=== PATIENT | female | born 1950 | race Caucasian/White ===

== ENCOUNTER → 2016-06-01 | Outpatient (CLI) | payer OTHER ==
--- NOTE | 2016-06-02 07:00 | DIAGNOSTIC IMAGING REPORT ---
RIGHT HIP UNILATERAL 2 VIEWS CLINICAL HISTORY: Right hip pain. No known trauma. COMPARISON: Pelvis and hip radiograph October 18, 2011. FINDINGS: Alignment of the right hip is anatomic. There is no fracture or suspicious lesion. Joint space is preserved. There is minimal osteophytosis of the right hip. IMPRESSION: 1. No acute fracture or dislocation of the right hip. 2. Minimal osteoarthritis of the right hip. Electronically signed by: Wilson Tipton M.D. 06/02/2016 6:59 AM Dictated Date/Time: 06/02/2016 6:58 AM
--- NOTE | 2016-06-02 07:01 | DIAGNOSTIC IMAGING REPORT ---
L-SPINE MIN 4 VIEWS ROUTINE CLINICAL HISTORY: Lumbar pain. COMPARISON: None FINDINGS: There are cholecystectomy clips. Pelvic calcifications likely reflect phleboliths. Alignment of the lumbar spine is anatomic. No fracture or suspicious lesion is present. There is mild multilevel disc space narrowing and osteophytosis with mild multilevel facet arthrosis. IMPRESSION: 1. No acute lumbar spine fracture or subluxation. 2. Mild multilevel degenerative disc disease and facet arthrosis. Electronically signed by: Wilson Tipton M.D. 06/02/2016 7:00 AM Dictated Date/Time: 06/02/2016 6:59 AM
== END | disposition home or self-care (01) ==
LOC: C.RAD 22:52
PROVIDERS: ATTEND Emergency Medicine
DX: M25.551 Pain in right hip (principal)

== ENCOUNTER → 2016-06-10 | Outpatient (CLI) | payer OTHER ==
[2016-06-10 19:06] LABS: MEAN CELL VOLUME 89.3 fL (80-100); MEAN CORPUSCULAR HEMOGLOBIN 29.2 pg (25-34); MEAN CORPUSCULAR HGB CONC 32.8 g/dl (32-36); MEAN PLATELET VOLUME 9.4 fL (7.4-10.4); PLATELET COUNT 239 K/uL (130-400); RED BLOOD COUNT 4.48 M/uL (4.2-5.4); WHITE BLOOD COUNT 7.44 K/uL (4.8-10.8)
[2016-06-10 19:28] LABS: ALT/SGPT 24 U/L (12-78); AST/SGOT 15 U/L (15-37); BLOOD UREA NITROGEN 17 mg/dl (7-18); BUN/CREATININE RATIO 22.8 (10-20); CALCIUM 8.9 mg/dl (8.5-10.1); CARBON DIOXIDE 30 mmol/L (21-32); CHLORIDE 108 mmol/L (98-107); CREATININE 0.76 mg/dl (0.60-1.20); GLUCOSE 108 mg/dl (70-99); POTASSIUM 4.3 mmol/L (3.5-5.1); SODIUM 142 mmol/L (136-145)
[2016-06-10 19:39] LABS: ALKALINE PHOSPHATASE 84 U/L (45-117); CHOLESTEROL 284 mg/dl (0-200); CHOLESTEROL/HDL RATIO 4.8; HDL CHOLESTEROL 59 mg/dl; LDL CHOLESTEROL CALCULATED 174 mg/dl; TRIGLYCERIDES 254 mg/dl (0-150); VERY LOW DENSITY LIPOPROT CALC 51 mg/dl
== END | disposition home or self-care (01) ==
LOC: C.LAB 18:37
PROVIDERS: ATTEND Specialist
DX: E11.65 Type 2 diabetes mellitus with hyperglycemia (principal); E78.5 Hyperlipidemia, unspecified; E55.9 Vitamin D deficiency, unspecified; E03.9 Hypothyroidism, unspecified

== ENCOUNTER → 2016-10-13 | Outpatient (CLI) | payer OTHER ==
[2016-10-13 12:40] LABS: ESTIMATED AVERAGE GLUCOSE 137 mg/dl; HA1C FLAG Normal (Normal)
[2016-10-13 12:43] LABS: ALT/SGPT 19 U/L (12-78); AST/SGOT 10 U/L (15-37); BLOOD UREA NITROGEN 18 mg/dl (7-18); BUN/CREATININE RATIO 21.4 (10-20); CALCIUM 8.9 mg/dl (8.5-10.1); CARBON DIOXIDE 30 mmol/L (21-32); CHLORIDE 105 mmol/L (98-107); CHOLESTEROL 250 mg/dl (0-200); CREATININE 0.83 mg/dl (0.60-1.20); GLUCOSE 109 mg/dl (70-99); POTASSIUM 4.1 mmol/L (3.5-5.1); SODIUM 139 mmol/L (136-145)
[2016-10-13 12:45] LABS: ALB/GLOB RATIO 0.8 (0.9-2); ALKALINE PHOSPHATASE 73 U/L (45-117); CHOLESTEROL/HDL RATIO 4.2; HDL CHOLESTEROL 59 mg/dl; LDL CHOLESTEROL CALCULATED 140 mg/dl; TRIGLYCERIDES 255 mg/dl (0-150); VERY LOW DENSITY LIPOPROT CALC 51 mg/dl
== END | disposition home or self-care (01) ==
LOC: C.LAB 10:42
PROVIDERS: ATTEND Physician Assistant
DX: E11.65 Type 2 diabetes mellitus with hyperglycemia (principal); E78.5 Hyperlipidemia, unspecified; E55.9 Vitamin D deficiency, unspecified

== ENCOUNTER → 2017-01-27 | Outpatient (CLI) | payer OTHER ==
[~2017-01-27] MED LIST: COEN100C11 PO; ERGO500037 PO; MULT-506 PO; OMEG10007 PO; PRT/20 PO
--- NOTE | 2017-01-27 15:32 | MAMMOGRAPHY REPORT ---
BILATERAL DIGITAL SCREENING MAMMOGRAM WITH CAD: 01/27/2017 CLINICAL HISTORY: Routine screening. Patient has no complaints. TECHNIQUE: Current study was also evaluated with a Computer Aided Detection (CAD) system. Bilateral CC and MLO views were obtained. COMPARISON: Comparison is made to exams dated: 03/05/2013 mammogram, 12/16/2011 mammogram - [facility], and 05/24/2006 mammogram - [facility]. BREAST COMPOSITION: There are scattered areas of fibroglandular density in both breasts. FINDINGS: No suspicious masses, calcifications, or areas of architectural distortion are noted in ei ther breast. There has been no significant interval change compared to prior exams. IMPRESSION: ACR BI-RADS CATEGORY 1: NEGATIVE There is no mammographic evidence of malignancy. A 1 year screening mammogram is recommended. The pa tient will receive written notification of the results. Approximately 10% of breast cancers are not detected with mammography. A negative mammographic report should not delay biopsy if a clinically suggestive mass is present. Kay Gibson M.D. ah/:01/27/2017 14:38:14 Network Management Specialist: Bebe Figueroa RT(R)(M)(BD), [facility] letter sent: Normal 1/2 BI-RADS Code: ACR BI-RADS Category 1: Negative
== END | disposition home or self-care (01) ==
LOC: C.MAMM 11:27
PROVIDERS: ATTEND General Practice
DX: Z12.31 Encounter for screening mammogram for malignant neoplasm of breast (principal)

== ENCOUNTER 2017-02-07 15:44 | Emergency (ER) | payer OTHER ==
[2017-02-07 15:46] VITALS: TEMP 36.9; Ht 157.5 cm
[2017-02-07 16:31] LABS: BASO % 0.3 %; BASO ABS # 0.02 K/uL (0-0.2); EOS % 3.8 %; EOS ABS # 0.23 K/uL (0-0.5); HEMATOCRIT 39.5 % (37-47); IG# 0.02 K/uL (0.00-0.02); LYMPH ABS # 2.27 K/uL (1.2-3.4); MEAN CELL VOLUME 89.8 fL (80-100); MEAN CORPUSCULAR HEMOGLOBIN 29.5 pg (25-34); MEAN CORPUSCULAR HGB CONC 32.9 g/dl (32-36); MEAN PLATELET VOLUME 9.5 fL (7.4-10.4); MONO ABS # 0.61 K/uL (0.11-0.59); NEUT % 48.6 %; NEUT ABS # 2.98 K/uL (1.4-6.5); PLATELET COUNT 204 K/uL (130-400); RED CELL DISTRIBUTION WIDTH CV 13.5 % (11.5-14.5); RED CELL DISTRIBUTION WIDTH SD 44.5 fL (36.4-46.3); WHITE BLOOD COUNT 6.13 K/uL (4.8-10.8)
--- NOTE | 2017-02-07 16:31 | DIAGNOSTIC IMAGING REPORT ---
ADDENDUM Findings should read, in the second sentence, the proximal calf is remarkable for a short segment of thrombosis of the greater saphenous vein. Electronically signed by: Abram Sullivan M.D. 02/07/2017 4:43 PM Dictated Date/Time: 02/07/2017 4:40 PM ORIGINAL REPORT L VENOUS DOPP LOWER EXT UNILAT CLINICAL HISTORY: left lower leg pain and swelling/erythema pain. Edema. TECHNIQUE: Venous Doppler COMPARISON STUDY: None FINDINGS: All major deep venous structures are patent. Proximal calf is remarkable for trauma sustained a component of the greater saphenous vein. IMPRESSION: 1. No evidence of deep venous thrombosis. 2. Focal superficial thrombophlebitis proximal calf. The above report was generated using voice recognition software. It may contain grammatical, syntax or spelling errors. Electronically signed by: Abram Sullivan M.D. 02/07/2017 4:29 PM Dictated Date/Time: 02/07/2017 4:28 PM
[2017-02-07 16:50] LABS: BLOOD UREA NITROGEN 21 mg/dl (7-18); CALCIUM 8.4 mg/dl (8.5-10.1); CARBON DIOXIDE 30 mmol/L (21-32); CREATININE 0.81 mg/dl (0.60-1.20); GLUCOSE 100 mg/dl (70-99); SODIUM 139 mmol/L (136-145)
--- NOTE | 2017-02-07 16:51 | EMERGENCY ROOM VISIT NOTE ---
History First contact with patient: 15:48 Chief Complaint: LEG PAIN,LEG INJURY Stated Complaint: HYPERTENSION History of Present Illness The patient is a 66 year old female who presents to the Emergency Room with complaints of left lower leg pain which started 3 days ago. The patient also states that it is red and hot to the touch. The patient denies any recent open wounds to the leg. The patient denies any fever. The patient denies any prior blood clots. She is not on any blood thinners. The patient denies any injury to the left lower leg. She has not been able to get in with her family physician. Review of Systems 10 system review was performed and was negative unless stated otherwise history of present illness. Past Medical/Surgical History Medical Problems: (1) Diab Dayna Wo Compl, Type Ii Or Unspec Type, Not Uncntrld (2) Endometrial Hyperplasia, Unspecified (3) Hyperlipidemia Nec/Nos (4) Hypertension Nos (5) Meniscus tear Surgical Problems: (1) History of dilation and curettage Social History Smoking Status: Never Smoker Marital Status: Housing Status: lives with significant other Occupation Status: employed Physical Exam Vital Signs Date Time Temp Pulse Resp B/P (MAP) Pulse Ox O2 Delivery O2 Flow Rate FiO2 02/07/17 15:46 36.9 59 20 147/83 98 Room Air Physical Exam GENERAL: 66-year-old white female appears in no acute distress. MENTAL Status: Alert and oriented 3 LUNGS: Clear auscultation without wheezes rales or rhonchi. CARDIAC: Regular rate and rhythm without murmur. Pulses is full and equal throughout. LEFT LOWER LEG there is a area of erythema and edema noted over the medial proximal aspect of the leg. It is very tender to palpation. There is slight increased temperature to touch. No palpable cords noted. Medical Decision & Procedures ER Provider Diagnostic Interpretation: L VENOUS DOPP LOWER EXT UNILAT CLINICAL HISTORY: left lower leg pain and swelling/erythema pain. Edema. TECHNIQUE: Venous Doppler COMPARISON STUDY: None FINDINGS: All major deep venous structures are patent. Proximal calf is remarkable for trauma sustained a component of the greater saphenous vein. IMPRESSION: 1. No evidence of deep venous thrombosis. 2. Focal superficial thrombophlebitis proximal calf. The above report was generated using voice recognition software. It may contain grammatical, syntax or spelling errors. Electronically signed by: Abram Sullivan M.D. Laboratory Results 02/07/17 16:05 Red Blood Count 4.40, Mean Corpuscular Volume 89.8, Mean Corpuscular Hemoglobin 29.5, Mean Corpuscular Hemoglobin Concent 32.9, Mean Platelet Volume 9.5, Neutrophils (%) (Auto) 48.6, Lymphocytes (%) (Auto) 37.0, Monocytes (%) (Auto) 10.0, Eosinophils (%) (Auto) 3.8, Basophils (%) (Auto) 0.3, Neutrophils # (Auto ) 2.98, Lymphocytes # (Auto) 2.27, Monocytes # (Auto) 0.61, Eosinophils # (Auto ) 0.23, Basophils # (Auto) 0.02 Test 02/07/17 16:05 White Blood Count 6.13 K/uL (4.8-10.8) Red Blood Count 4.40 M/uL (4.2-5.4) Hemoglobin 13.0 g/dL (12.0-16.0) Hematocrit 39.5 % (37-47) Mean Corpuscular Volume 89.8 fL (80-100) Mean Corpuscular Hemoglobin 29.5 pg (25-34) Mean Corpuscular Hemoglobin Concent 32.9 g/dl (32-36) Platelet Count 204 K/uL (130-400) Mean Platelet Volume 9.5 fL (7.4-10.4) Neutrophils (%) (Auto) 48.6 % Lymphocytes (%) (Auto) 37.0 % Monocytes (%) (Auto) 10.0 % Eosinophils (%) (Auto) 3.8 % Basophils (%) (Auto) 0.3 % Neutrophils # (Auto) 2.98 K/uL (1.4-6.5) Lymphocytes # (Auto) 2.27 K/uL (1.2-3.4) Monocytes # (Auto) 0.61 K/uL (0.11-0.59) Eosinophils # (Auto) 0.23 K/uL (0-0.5) Basophils # (Auto) 0.02 K/uL (0-0.2) RDW Standard Deviation 44.5 fL (36.4-46.3) RDW Coefficient of Variation 13.5 % (11.5-14.5) Immature Granulocyte % (Auto) 0.3 % Immature Granulocyte # (Auto) 0.02 K/uL (0.00-0.02) Prothrombin Time 10.0 SECONDS (9.0-12.0) Prothromb Time International Ratio 1.0 (0.9-1.1) Activated Partial Thromboplast Time 23.0 SECONDS (21.0-31.0) Partial Thromboplastin Ratio 0.9 ED Course The patient was evaluated. IV access was obtained. The patient's EMR medication list were reviewed. CBC and differential, coags, renal profile was ordered. Venous Doppler of the left lower extremity was ordered and interpreted by the radiologist as above with findings consistent with focal superficial phlebitis. Labs are reviewed and were unremarkable. White count was normal. The patient was informed of all findings. The patient was discharged in stable condition. Medical Decision Differential diagnosis include cellulitis, superficial phlebitis, DVT Medication Reconcilliation Current Medication List: was personally reviewed by me Blood Pressure Screening Patient's blood pressure: Elevated blood pressure Blood pressure disposition: Elevated BP felt to be situational Impression Primary Impression: Superficial phlebitis of left leg Departure Information Dispostion Home / Self-Care Condition GOOD Referrals Jass Pike D.O. (PCP) Forms HOME CARE DOCUMENTATION FORM, IMPORTANT VISIT INFORMATION Patient Instructions ED Phlebitis Superficial, My [facility] Additional Instructions Ibuprofen 600 mg every 6 hours with food for pain and inflammation. Keep leg elevated whenever possible. You may also try applying warm moist compresses to the affected area several times a day. Recommend wearing support stockings until symptoms resolve. If symptoms worsen, return to ER for further evaluation.
[2017-02-07 17:09] VITALS: BP 165/97; PULSE 67; O2SAT 97
[2017-06-01] MEDS ORDERED: COEN100C11 PO (09:25)
== END 2017-02-07 17:10 | disposition home or self-care (01) ==
LOC: C.EDB 15:44 → C.EDD 17:10
DX: I80.02 Phlebitis and thrombophlebitis of superficial vessels of left lower extremity (principal); E11.9 Type 2 diabetes mellitus without complications; N85.00 Endometrial hyperplasia, unspecified; E78.5 Hyperlipidemia, unspecified; I10 Essential (primary) hypertension

== ENCOUNTER → 2017-02-22 | Outpatient (CLI) | payer OTHER ==
[2017-02-22 00:57] LABS: ALBUMIN 3.5 gm/dl (3.4-5.0); ALT/SGPT 33 U/L (12-78); AST/SGOT 24 U/L (15-37); BLOOD UREA NITROGEN 24 mg/dl (7-18); CARBON DIOXIDE 28 mmol/L (21-32); CREATININE 0.85 mg/dl (0.60-1.20); GLUCOSE 109 mg/dl (70-99); POTASSIUM 3.7 mmol/L (3.5-5.1); SODIUM 139 mmol/L (136-145)
[2017-02-22 00:59] LABS: ALKALINE PHOSPHATASE 63 U/L (45-117); CHOLESTEROL 261 mg/dl (0-200); LDL CHOLESTEROL CALCULATED 143 mg/dl; TOTAL PROTEIN 7.5 gm/dl (6.4-8.2)
[2017-02-22 06:22] LABS: HEMOGLOBIN A1C 6.4 % (4.5-5.6)
== END | disposition home or self-care (01) ==
LOC: C.LAB 00:03
PROVIDERS: ATTEND Physician Assistant
DX: E11.9 Type 2 diabetes mellitus without complications (principal); I10 Essential (primary) hypertension; I25.10 Atherosclerotic heart disease of native coronary artery without angina pectoris

== ENCOUNTER 2017-05-29 14:03 | Emergency (ER) | payer OTHER ==
[2017-05-29 14:12] VITALS: TEMP 36.6
[2017-05-29] MEDS ORDERED: ALUMINUM/MAGNESIUM SUSP 30 ML UDC PO STA (14:19)
[2017-05-29] MEDS ORDERED: LIDOCAINE HCL 2% VISC SOLN 20 ML UDC PO STA (14:19)
[2017-05-29] MEDS ORDERED: MULT-506 PO (14:32)
[2017-05-29] MEDS ORDERED: OMEG10007 PO (14:32)
[2017-05-29] MEDS ORDERED: ERGO500037 PO (14:32)
--- NOTE | 2017-05-29 14:32 | DIAGNOSTIC IMAGING REPORT ---
SINGLE VIEW CHEST CLINICAL HISTORY: Atypical chest pain. FINDINGS: An AP, portable, upright chest radiograph is compared to study dated 02/03/2014. The examination is degraded by portable technique and patient rotation. The cardiomediastinal silhouette is unremarkable. There is mild atherosclerotic calcification of the thoracic aorta. The lungs and pleural spaces are clear. No pneumothorax is seen. The skeletal structures are osteopenic. The bony thorax is grossly intact. Degenerative change is seen throughout the thoracic spine. IMPRESSION: No active disease in the chest. Electronically signed by: Chandu Koch M.D. 05/29/2017 2:30 PM Dictated Date/Time: 05/29/2017 2:30 PM
[2017-05-29 15:19] LABS: HEMATOCRIT 40.4 % (37-47); HEMOGLOBIN 13.7 g/dL (12.0-16.0); MEAN CELL VOLUME 87.6 fL (80-100); MEAN CORPUSCULAR HEMOGLOBIN 29.7 pg (25-34); MEAN CORPUSCULAR HGB CONC 33.9 g/dl (32-36); MEAN PLATELET VOLUME 9.3 fL (7.4-10.4); PLATELET COUNT 213 K/uL (130-400); RED CELL DISTRIBUTION WIDTH CV 13.6 % (11.5-14.5); RED CELL DISTRIBUTION WIDTH SD 43.7 fL (36.4-46.3); WHITE BLOOD COUNT 4.81 K/uL (4.8-10.8)
[2017-05-29 15:31] LABS: PTT PATIENT 23.2 SECONDS (21.0-31.0)
[2017-05-29 15:38] LABS: ALBUMIN 3.5 gm/dl (3.4-5.0); ALT/SGPT 20 U/L (12-78); AST/SGOT 16 U/L (15-37); BLOOD UREA NITROGEN 17 mg/dl (7-18); CALCIUM 8.9 mg/dl (8.5-10.1); CARBON DIOXIDE 29 mmol/L (21-32); CREATININE 0.84 mg/dl (0.60-1.20); GLUCOSE 108 mg/dl (70-99); LIPASE 135 U/L (73-393); POTASSIUM 3.6 mmol/L (3.5-5.1); SODIUM 139 mmol/L (136-145)
[2017-05-29 15:42] LABS: ALKALINE PHOSPHATASE 63 U/L (45-117); TOTAL PROTEIN 7.6 gm/dl (6.4-8.2)
--- NOTE | 2017-05-29 15:42 | EMERGENCY ROOM VISIT NOTE ---
History Report prepared by Deb: Delroy Nguyễn Under the Supervision of: Dr. Chandu George M.D. First contact with patient: 14:10 Chief Complaint: BACK PAIN Stated Complaint: UPPER BACK PAIN History of Present Illness The patient is a 66 year old female who presents to the Emergency Room with complaints of intermittent central chest pain beginning five days ago. Her pain radiates outwards, and into her back. The patient states that her pain began when she was eating extremely hot sauerkraut, which burned her throat as it went down. She states that her pain was a 10/10 at its worst. The patient rates her current pain as a 4/10 in severity. Her pain is worsened with swallowing and deep breathing. She states that her pain was previously only present with swallowing, but was present upon waking up today and has been constant since. The patient has used Maalox and antacids, but nothing has improved her symptoms. She has a history of cholecystectomy. The patient denies diaphoresis, SOB, fevers, cough, or nausea. Source of History: patient Onset: Five days ago Position: chest (central) Symptom Intensity: 4/10 currently, 10/10 at worst Timing: intermittent Modifying Factors (Worsening): breathing (deep), other (swallowing) Associated Symptoms: + back pain, No fevers, No diaphoresis, No cough, No SOB Review of Systems See HPI for pertinent positives & negatives. A total of 10 systems reviewed and were otherwise negative. Past Medical & Surgical Medical Problems: (1) Diab Dayna Wo Compl, Type Ii Or Unspec Type, Not Uncntrld (2) Endometrial Hyperplasia, Unspecified (3) Hyperlipidemia Nec/Nos (4) Hypertension Nos (5) Meniscus tear Surgical Problems: (1) History of dilation and curettage Family History No pertinent family history stated. Social History Smoking Status: Never Smoker Marital Status: Housing Status: lives with significant other Occupation Status: employed Current/Historical Medications Scheduled Ergocalciferol (Vitamin D 47165 Unit), 50,000 UNIT PO WK Fish Oil (Ellinger-3), 1 CAP PO DAILY Multivitamin (Multivitamin), 1 TAB PO DAILY Pantoprazole (Protonix), 20 MG PO BID Allergies Coded Allergies: No Known Allergies (Verified , 05/29/17) Physical Exam Vital Signs Date Time Temp Pulse Resp B/P (MAP) Pulse Ox O2 Delivery O2 Flow Rate FiO2 05/29/17 16:05 60 18 183/92 99 05/29/17 15:17 64 05/29/17 15:15 60 19 168/97 98 Room Air 05/29/17 14:12 36.6 64 20 182/108 99 Room Air Physical Exam GENERAL: Patient is in no acute distress. HEENT: No acute trauma, normocephalic atraumatic, mucous membranes moist, no nasal congestion, no scleral icterus. NECK: No stridor, no adenopathy, no meningismus, trachea is midline. LUNGS: Clear to auscultation bilaterally, no wheeze, no rhonchi, breath sounds equal. HEART: Without murmurs gallops or rubs, regular rate and rhythm. ABDOMEN: Soft, nontender, bowel sounds positive, no hernias, no peritonitis. EXTREMITIES: No cyanosis or edema, full range of motion of all the joints without pain or difficulty, no signs for acute trauma. NEUROLOGIC: Oriented x 3, no acute motor or sensory deficits, no focal weakness. SKIN: No rash, no jaundice, no diaphoresis. Medical Decision & Procedures ER Provider Diagnostic Interpretation: Radiology results as stated below per my review and radiologist interpretation: SINGLE VIEW CHEST FINDINGS: An AP, portable, upright chest radiograph is compared to study dated 02/03/2014. The examination is degraded by portable technique and patient rotation. The cardiomediastinal silhouette is unremarkable. There is mild atherosclerotic calcification of the thoracic aorta. The lungs and pleural spaces are clear. No pneumothorax is seen. The skeletal structures are osteopenic. The bony thorax is grossly intact. Degenerative change is seen throughout the thoracic spine. IMPRESSION: No active disease in the chest. Electronically signed by: Chandu Koch M.D. 05/29/2017 2:30 PM Laboratory Results 05/29/17 15:05 05/29/17 15:05 Test 05/29/17 15:05 Red Blood Count 4.61 M/uL (4.2-5.4) Mean Corpuscular Volume 87.6 fL (80-100) Mean Corpuscular Hemoglobin 29.7 pg (25-34) Mean Corpuscular Hemoglobin Concent 33.9 g/dl (32-36) RDW Standard Deviation 43.7 fL (36.4-46.3) RDW Coefficient of Variation 13.6 % (11.5-14.5) Mean Platelet Volume 9.3 fL (7.4-10.4) Prothrombin Time 10.3 SECONDS (9.0-12.0) Prothromb Time International Ratio 1.0 (0.9-1.1) Activated Partial Thromboplast Time 23.2 SECONDS (21.0-31.0) Partial Thromboplastin Ratio 0.9 Anion Gap 5.0 mmol/L (3-11) Estimated GFR () 85.1 Estimated GFR (Non- 73.4 BUN/Creatinine Ratio 20.5 (10-20) Calcium Level 8.9 mg/dl (8.5-10.1) Total Bilirubin 0.4 mg/dl (0.2-1) Aspartate Amino Transf (AST/SGOT) 16 U/L (15-37) Alanine Aminotransferase (ALT/SGPT) 20 U/L (12-78) Alkaline Phosphatase 63 U/L (45-117) Troponin I < 0.015 ng/ml (0-0.045) Total Protein 7.6 gm/dl (6.4-8.2) Albumin 3.5 gm/dl (3.4-5.0) Globulin 4.1 gm/dl (2.5-4.0) Albumin/Globulin Ratio 0.8 (0.9-2) Lipase 135 U/L (73-393) Laboratory results reviewed by me. Medications Administered Medications (Trade) Dose Ordered Sig/Neo Route Start Time Stop Time Status Last Admin Dose Admin Lidocaine HCl (Viscous Lidocaine 2% Soln) 10 ml NOW STAT PO 05/29/17 14:19 05/29/17 14:20 DC 05/29/17 14:46 10 ML Al Hydroxide/Mg Hydroxide (Maalox Susp) 30 ml NOW STAT PO 05/29/17 14:19 05/29/17 14:20 DC 05/29/17 14:46 30 ML Pantoprazole Sodium (Protonix Tab) 40 mg NOW STAT PO 05/29/17 15:48 05/29/17 15:49 DC 05/29/17 16:04 40 MG ECG Per My Interpretation Indication: chest pain Rate (beats per minute): 55 Rhythm: sinus bradycardia Findings: other (No ST elevations. No PVCs. ) ED Course 1412: The patient was evaluated in room A2. A complete history and physical exam was performed. 1419: Ordered Maalox Susp 30 mL PO, Viscous Lidocaine 2% Soln 10 mL PO. 1548: Ordered Protonix Tab 40 mg PO. 1550: Reevaluated the patient. Discussed results and discharge instructions: she verbalized understanding and agreement. She states that her blood pressure is never elevated, and she will watch this at home. The patient is ready for discharge. Medical Decision The patient is a 66 year old female who presents to the ED with complaints of chest pain. Differential diagnoses considered include reflux, esophageal burn/ ulcer, gastritis, pancreatitis, cardiac ischemia, aortic dissection, PE, and NH. There is no leukocytosis or concerning anemia. No significant electrolyte abnormality, kidney failure, hepatitis or pancreatitis. EKG shows a sinus bradycardia, no acute ischemia. Cardiac enzyme testing 1 is not consistent with acute cardiac injury. Chest film does not show mediastinal widening, pneumonia, free air or pneumothorax. The patient was given a GI cocktail, this did help her discomfort. She was given oral Protonix. I spoke with GI. The patient is being discharged with twice a day Protonix, Maalox before meals. She will follow with GI for an endoscopy in a day or so. If worsening, she can return. It appears that she has caused some esophageal burn/injury from the hot food consumed a few days ago. Of note, the blood pressure was elevated here, the patient was asymptomatic and can follow with her doctors office for a blood pressure recheck. Medication Reconcilliation Current Medication List: was personally reviewed by me Blood Pressure Screening Patient's blood pressure: Elevated blood pressure Blood pressure disposition: Referred to PCP Consults Time Called: 6 Consulting Physician: Dr. Green - JOHN Returned Call: [phone] Discussed the patient's case. Dr. Green recommends the patient be started on a proton pump inhibitor twice a day, and given Maalox before meals. He will work to schedule the patient for endoscopy this week. Impression Primary Impression: Precordial chest pain Additional Impressions: Difficulty swallowing Hypertension Scribe Attestation The scribe's documentation has been prepared under my direction and personally reviewed by me in its entirety. I confirm that the note above accurately reflects all work, treatment, procedures, and medical decision making performed by me. Departure Information Dispostion Home / Self-Care Prescriptions Pantoprazole (Protonix) 20 Mg Tab 20 MG PO BID for 30 Days, #60 TAB 3 Refills Prov: Feese, Chandu J.,M.D. 05/29/17 Referrals Jass Pike D.O. (PCP) Forms HOME CARE DOCUMENTATION FORM, IMPORTANT VISIT INFORMATION Patient Instructions My [facility] Additional Instructions protonix 2x per day maalox 2 tbls before any food/meals no advil, aleve, motrin, ibuprofen may use tylenol for pain softer foods for now Dr. Green will be in touch for a scope this week see katelynn chow for a recheck and blood pressure recheck Problem Qualifiers
[2017-05-29] MEDS ORDERED: PANTOprazole SOD 40 MG TAB PO STA (15:48)
[2017-05-29] MEDS ORDERED: PRT/20 PO (15:55)
[2017-05-29 16:05] VITALS: BP 183/92; PULSE 60; O2SAT 99
[2017-06-01] MEDS ORDERED: COEN100C11 PO (09:25)
== END 2017-05-29 16:10 | disposition home or self-care (01) ==
LOC: C.EDB 14:04 → C.EDA 16:10
DX: R07.2 Precordial pain (principal); R13.10 Dysphagia, unspecified; I10 Essential (primary) hypertension

== ENCOUNTER → 2017-06-02 | Day surgery (SDC) | payer OTHER ==
[2017-06-01 09:26] VITALS: Ht 157.5 cm; Wt 91.4 kg
[~2017-06-02] VITALS: Ht 157.5 cm; Wt 91.4 kg
[~2017-06-02] MED LIST changes: +SODIUM CHLORIDE 0.9% 500ML 500 ML IV ONE
--- NOTE | 2017-06-02 13:59 | Endo History and Physical ---
History & Physical Date of Service: Jun 02, 2017. Chief Complaint: dysphagia,epigastric pain Referring Physician: Dr. Jass Pike History of Present Illness 66 yo CF who presents for EGD secondary to dysphagia and epigastric abdominal pain. Past Surgical History Hx Cardiac Surgery: Yes (cath 10 years ago) Hx Internal Defibrillator: No Hx Pacemaker: No Hx Abdominal Surgery: Yes (DAHIANA 1995/ hyster august 2013, HERNIA REPAIR 2015, TUBAL) Hx of Implantable Prosthesis: No Hx Post-Op Nausea and Vomiting: No Hx Cancer Surgery: No Hx Thoracic Surgery: No Hx Orthopedic: Yes (L knee, july 2013 R knee, 2007) Hx Urinary Tract Surgery: No Social History Smoking Status: Never Smoker Hx Substance Use: No Hx Alcohol Use: Yes (rare, holidays) Allergies Coded Allergies: No Known Allergies (Verified , 06/01/17) Current Medications Reported Home Medications Medications Dose Route/Sig Max Daily Dose Days Date Category Coq-10 (Coenzyme Q10 (Ubidecarenone)) 100 Mg Cap 1 Tab PO DAILY 06/01/17 Reported Protonix (Pantoprazole Sodium) 20 Mg Tab 20 Mg PO BID 30 05/29/17 Rx Multivitamin (Multivitamins) Tab 1 Tab PO DAILY 05/29/17 Reported [place]-3 (Fish Oil) 1 Ea Cap 1 Cap PO BID 05/29/17 Reported Vitamin D 65373 Unit (Ergocalciferol) 50,000 Unit Cap 50,000 Unit PO WK 05/29/17 Reported Vital Signs Weight (Kilograms): 91.36 Height (Feet): 5 Height (Inches): 2 Date Time Temp Pulse Resp B/P (MAP) Pulse Ox O2 Delivery O2 Flow Rate FiO2 06/02/17 13:06 36.6 52 16 140/78 (98) 99 Room Air Physical Exam General Appearance: WD/WN, no apparent distress Respiratory/Chest: Auscultation: breath sounds normal Cardiovascular: Heart Auscultation: RRR Abdomen: Bowel Sounds: normal Inspection & Palpation: soft, non-distended, no tenderness, guarding & rebound Assessment and Plan Assessment: 66 yo CF who presents for EGD secondary to dysphagia and epigastric abdominal pain. Plan: Proceed with EGD.
--- NOTE | 2017-06-02 14:29 | Discharge Instructions ---
Endoscopy Patient Instructions Date / Procedure(s) Performed Jun 02, 2017. EGD Allergy Information Coded Allergies: No Known Allergies (Verified , 06/01/17) Discharge Date / Findings Jun 02, 2017. Esophageal ulcer Hiatal hernia Medication Instructions OK to resume all medications today as prescribed Reported Home Medications Medications Dose Route/Sig Max Daily Dose Days Date Category Coq-10 (Coenzyme Q10 (Ubidecarenone)) 100 Mg Cap 1 Tab PO DAILY 06/01/17 Reported Protonix (Pantoprazole Sodium) 20 Mg Tab 20 Mg PO BID 30 05/29/17 Rx Multivitamin (Multivitamins) Tab 1 Tab PO DAILY 05/29/17 Reported Devon-3 (Fish Oil) 1 Ea Cap 1 Cap PO BID 05/29/17 Reported Vitamin D 56762 Unit (Ergocalciferol) 50,000 Unit Cap 50,000 Unit PO WK 05/29/17 Reported Provider Instructions Activity Restrictions - No exercising or heavy lifting for 24 hours. - Do not drink alcohol the day of the procedure. - Do not drive a car or operate machinery until the day after the procedure. - Do not make any important decisions or sign important papers in 24 hours after the procedure. Following Day: - Return to full activity which may include returning to work/school. Diet Start your diet with liquids and light foods (jello, soup, juice, toast). Then eat your usual diet if not nauseated. Treatment For Common After Affects For mild abdominal pain, bloating, or excessive gas: - Rest - Eat lightly - Lie on right side Follow-Up Information Follow-up with Dr. Jass Pike as scheduled Anesthesia Information What You Should Know You have had a procedure that required some medicine to reduce anxiety and discomfort. This treatment is called moderate sedation. After receiving the treatment, you may be sleepy, but you will be able to breathe on your own. The effects of the treatment may last for several hours. Follow these instructions along with Activity/Diet recommendations noted above: * Do NOT do anything where dizziness or clumsiness would be dangerous. * Rest quietly at home today, then you can be up and about tomorrow. * Have a responsible person stay with you the rest of today. * You may have had an I.V. today. If so, you may take the dressing off later today. Recommendations Call your doctor if: * Trouble breathing * Continuous vomiting for more than 24 hours * Temperature above 101 degrees * Severe abdominal pain or bloating * Pain not relieved by pain medicine ordered * There is increased drainage or redness from any incision * A large amount of rectal bleeding greater than 2-3 tablespoons. (If you had a polyp/s removed or have hemorrhoids, a small amount of blood - from the rectum is to be expected.) * You have any unanswered questions or concerns. IN THE EVENT OF A SERIOUS EMERGENCY, GO TO THE NEAREST EMERGENCY ROOM Your discharge instructions were prepared by provider Luis Angel Green. Patient Instructions Signature Page Thi Tomas Patient (or Guardian) Signature/Date: I have read and understand the instructions given to me by my caregivers. Caregiver/RN/Doctor Signature/Date: The above-named patient and/or guardian has received patient instructions on this date. + Original Patient Signature Page (only) stays with chart. Please make copy for patient.
--- NOTE | 2017-06-02 14:38 | GI REPORT ---
Patient Name: Thi Tomas Procedure Date: 06/02/2017 2:10 PM Date of : 1950 Admit Type: Outpatient Age: 66 Gender: Female Attending MD: Luis Angel Green DO Procedure: Upper GI endoscopy Providers: Luis Angel Green DO Referring MD: Jass Pike Indications: Dysphagia Medicines: Monitored Anesthesia Care Complications: No immediate complications. Estimated Blood Loss: Estimated blood loss: none. Procedure: Pre-Anesthesia Assessment: - Prior to the procedure, a History and Physical was performed, and patient medications and allergies were reviewed. The patient's tolerance of previous anesthesia was also reviewed. The risks and benefits of the procedure and the sedation options and risks were discussed with the patient. All questions were answered, and informed consent was obtained. Prior Anticoagulants: The patient has taken no previous anticoagulant or antiplatelet agents. ASA Grade Assessment: II - A patient with mild systemic disease. After reviewing the risks and benefits, the patient was deemed in satisfactory condition to undergo the procedure. After obtaining informed consent, the endoscope was passed under direct vision. Throughout the procedure, the patient's blood pressure, pulse, and oxygen saturations were monitored continuously. The scope was introduced through the mouth, and advanced to the second part of duodenum. The upper GI endoscopy was accomplished without difficulty. The patient tolerated the procedure well. Findings: One cratered esophageal ulcer with no bleeding and no stigmata of recent bleeding was found 35 cm from the incisors. The lesion was 10 mm in largest dimension. A small hiatal hernia was present. The examined duodenum was normal. Impression: - Non-bleeding esophageal ulcer. - Small hiatal hernia. - Normal examined duodenum. - No specimens collected. Recommendation: - Resume previous diet. - Continue present medications. - Return to GI clinic PRN. Luis Angel Green DO 06/02/2017 2:38:31 PM This report has been signed electronically. Note Initiated On: 06/02/2017 2:10 PM Number of Addenda: 0 I attest to the content of the Intraoperative Record and orders documented therein, exceptions below {[id number]}
[2017-06-02 15:00] VITALS: BP 151/85; PULSE 55; O2SAT 97
--- NOTE | 2017-06-02 16:08 | Anesthesiology Progress Note ---
Anesthesia Post Op Note Date & Time Jun 02, 2017 at 16:08 Vital Signs Pain Intensity: 0 Vital Signs Past 12 Hours Date Time Temp Pulse Resp B/P (MAP) Pulse Ox O2 Delivery O2 Flow Rate FiO2 06/02/17 15:00 55 18 151/85 (107) 97 Room Air 06/02/17 14:45 52 18 133/84 (100) 97 Room Air 06/02/17 14:30 69 16 121/70 (87) 96 Room Air 06/02/17 13:06 36.6 52 16 140/78 (98) 99 Room Air Notes Mental Status: alert / awake / arousable, participated in evaluation Pt Amnestic to Procedure: Yes Nausea / Vomiting: adequately controlled Pain: adequately controlled Airway Patency, RR, SpO2: stable & adequate BP & HR: stable & adequate Hydration State: stable & adequate Anesthetic Complications: no major complications apparent
== END | disposition home or self-care (01) ==
LOC: C.GI 12:39
PROVIDERS: ATTEND Internal Medicine
DX: R13.10 Dysphagia, unspecified (principal); K22.10 Ulcer of esophagus without bleeding; K44.9 Diaphragmatic hernia without obstruction or gangrene; E66.9 Obesity, unspecified; Z90.49 Acquired absence of other specified parts of digestive tract; Z90.710 Acquired absence of both cervix and uterus

== ENCOUNTER → 2017-06-21 | Outpatient (CLI) | payer OTHER ==
[~2017-06-21] MED LIST changes: -SODIUM CHLORIDE 0.9% 500ML 500 ML IV ONE
[2017-06-21 12:31] LABS: HEMATOCRIT 40.9 % (37-47); HEMOGLOBIN 13.5 g/dL (12.0-16.0); MEAN CELL VOLUME 87.6 fL (80-100); MEAN CORPUSCULAR HEMOGLOBIN 28.9 pg (25-34); MEAN PLATELET VOLUME 9.7 fL (7.4-10.4); PLATELET COUNT 212 K/uL (130-400); RED CELL DISTRIBUTION WIDTH CV 13.8 % (11.5-14.5); RED CELL DISTRIBUTION WIDTH SD 44.3 fL (36.4-46.3); WHITE BLOOD COUNT 5.89 K/uL (4.8-10.8)
[2017-06-21 13:17] LABS: ALBUMIN 3.3 gm/dl (3.4-5.0); ALT/SGPT 22 U/L (12-78); AST/SGOT 16 U/L (15-37); BLOOD UREA NITROGEN 18 mg/dl (7-18); CARBON DIOXIDE 28 mmol/L (21-32); GLUCOSE 101 mg/dl (70-99); POTASSIUM 3.7 mmol/L (3.5-5.1); SODIUM 140 mmol/L (136-145)
[2017-06-21 13:20] LABS: ALKALINE PHOSPHATASE 62 U/L (45-117); CHOLESTEROL 270 mg/dl (0-200); LDL CHOLESTEROL CALCULATED 184 mg/dl; TOTAL PROTEIN 7.3 gm/dl (6.4-8.2)
== END | disposition home or self-care (01) ==
LOC: C.LAB 10:52
PROVIDERS: ATTEND General Practice
DX: E78.5 Hyperlipidemia, unspecified (principal); E55.9 Vitamin D deficiency, unspecified; I25.10 Atherosclerotic heart disease of native coronary artery without angina pectoris